=== PATIENT | female | born 1975 | race Caucasian/White ===

== ENCOUNTER → 2017-04-01 | Outpatient (CLI) | payer BC ==
[~2017-04-01] MED LIST: ADVAIR 100/28 DISKU1 IH; DHA PO; LABETALOL100 MG PO; MOTRIN 600600 MG/TAB PO; PERCOCET 325 MG1 TA2 PO; PRENATABS RX1 TAB PO; SINGULAIR10 MG PO
== END ==
LOC: MC.RAD 11:08
DX: Z12.31 Encounter for screening mammogram for malignant neoplasm of breast (principal); N64.89 Other specified disorders of breast

== ENCOUNTER → 2017-04-11 | Outpatient (CLI) | payer BC | LOC: MC.RAD 13:21 | DX: Z12.31 Encounter for screening mammogram for malignant neoplasm of breast (principal) ==

== ENCOUNTER → 2019-07-06 | Outpatient (CLI) | payer BC | LOC: MC.RAD 11:23 | DX: Z12.31 Encounter for screening mammogram for malignant neoplasm of breast (principal) ==

== ENCOUNTER → 2020-08-03 | Outpatient (CLI) | payer BC | LOC: MC.RAD 13:15 | DX: Z12.31 Encounter for screening mammogram for malignant neoplasm of breast (principal) ==

== ENCOUNTER → 2021-09-11 | Outpatient (CLI) | payer BC | LOC: MC.RAD 08:54 | DX: Z12.31 Encounter for screening mammogram for malignant neoplasm of breast (principal) ==

== ENCOUNTER 2022-10-26 14:51 | Emergency (ER) | payer BC ==
[~2022-10-26] VITALS: Ht 170.2 cm; Wt 65.5 kg
[2022-10-26 14:55] VITALS: TEMP 97.8
[2022-10-26 16:12] VITALS: BP 161/109; PULSE 72
== END 2022-10-26 16:12 | disposition home or self-care (01) ==
LOC: COL.ER 14:51
DX: S52.551A Other extraarticular fracture of lower end of right radius, initial encounter for closed fracture (principal); V00.121A Fall from non-in-line roller-skates, initial encounter; Y92.331 Roller skating rink as the place of occurrence of the external cause; Y93.51 Activity, roller skating (inline) and skateboarding

== ENCOUNTER → 2024-04-29 | Outpatient (CLI) | payer BC | LOC: MC.RAD 09:24 | DX: Z12.31 Encounter for screening mammogram for malignant neoplasm of breast (principal) ==